=== PATIENT | female | born 1960 | race African-American/Black ===

== ENCOUNTER 2016-03-23 10:39 | Emergency (ER) | payer BC, OTHER ==
[~2016-03-23] VITALS: Ht 152.4 cm; Wt 66.7 kg
[2016-03-23 11:05] VITALS: BP 148/80
--- NOTE | 2016-03-23 11:05 | Emergency Room Report ---
History of Present Illness General Chief Complaint: Abnormal Labs Source: Patient Present Illness HPI 56 YOF walk-in patient sent from clinic for "high glucose" of 490 that was drawn this morning. Accucheck in ED 355. Patient denies known history of DM. States DM is present in her family. Denies fever/chills, nausea/vomiting, abd pain. Urinates a lot at night but attributes this to drinking a lot of water. No other medical problems. Allergies: Coded Allergies: No Known Allergies (Unverified , 03/23/16) Patient History Past Medical History: none Past Surgical History: none Pertinent Family History: DM Social History: Denies: alcohol use, drug use, smoking Last Menstrual Period: none Now: No Immunizations: UTD Reviewed Nursing Documentation: PMH: Agreed, PSxH: Agreed Nursing Documentation-PMH Past Medical History: No History, Except For Hx Hypertension: Yes Review of Systems All Other Systems: negative except mentioned in HPI Physical Exam Vital Signs Date Time Temp Pulse Resp B/P Pulse Ox O2 Delivery O2 Flow Rate FiO2 03/23/16 10:45 97.9 86 18 159/89 98 Room Air Sp02 EP Interpretation: reviewed, normal General Appearance: normal inspection, well appearing, no apparent distress, alert Head: atraumatic ENT: normal ENT inspection, hearing grossly normal, normal voice Neck: normal inspection, full range of motion, supple, no bony tend Respiratory: normal inspection, lungs clear, normal breath sounds, no respiratory distress, no retraction, no wheezing Cardiovascular #1: regular rate, rhythm, no edema Gastrointestinal: normal inspection, normal bowel sounds, non tender, soft, no guarding, no hernia Genitourinary: no CVA tenderness Neurologic: normal inspection, alert, oriented x3, responsive, development representative III-XII nml as tested, motor strength/tone normal, speech normal Psychiatric: normal inspection, judgement/insight normal, mood/affect normal Skin: normal inspection, normal color, no rash Medical Decision Making Diagnostic Impression: Primary Impression: Abnormal laboratory test result Additional Impression: Hyperglycemia ER Course 56 YO F with asymptomatic hyperglycemia. ?new onset DM. VSS. Afebrile. No symptoms. Feels well otherwise Already given Metformin Rx by PMD, in progress at pharmacy Offered patient option of staying in ED for additional lab work, IVF hydration, possibly insulin but patient prefers to take metformin Rx at home; doesnt want to stay in ED Understands to return for nausea/vomiting, abd pain, other concerning symptoms Will f/up with PMD Last Vital Signs Date Time Temp Pulse Resp B/P Pulse Ox O2 Delivery O2 Flow Rate FiO2 03/23/16 10:45 97.9 86 18 159/89 98 Room Air Status: improved Disposition: HOME, SELF-CARE Condition: Improved Patient Instructions: Hyperglycemia Additional Instructions: - Try a weight loss program and to exercise regularly to reduce your blood sugar - Take Metformin as prescribed by your doctor - Return to ER for severe abdominal pain, vomiting, fever/chills LAURA MILIAN M.D. Mar 23, 2016 11:05
[2016-03-23 11:13] VITALS: BP 148/80
== END 2016-03-23 11:14 | disposition home or self-care (01) ==
LOC: EMR 10:45
DX: R73.9 Hyperglycemia, unspecified (principal); I10 Essential (primary) hypertension; Z83.3 Family history of diabetes mellitus
CPT/HCPCS: 82962; 99282